=== PATIENT | female | born 1960 | race Caucasian/White ===

== ENCOUNTER 2022-08-18 09:46 | Outpatient (CLI) | payer MEDICAID, SELFPAY ==
--- OUTSIDE RECORDS SUMMARY | 2022-08-18 11:23 | XMS_ITS | Clinical Summary ---
:1960 Author Organization [employer] [facility] [place] [address] Care Team Providers Name Role Phone Harish William MD Primary Care Provider Allergies Active Allergy Reactions Severity Noted Date Comments Sulfa (Sulfonamide Antibiotics) Rash Medium 2 Medications Medication Sig Dispensed Refills Start Date End Date Status venlafaxine (EFFEXOR) Take 1 tablet by 0 05/31/2012 Active 50 mg tablet mouth 2 times daily. traZODone (DESYREL) 100 Take 1 tablet by 0 2 Active mg tablet mouth at bedtime. Active Problems Problem Noted Date Screen for colon cancer 05/31/2012 Overview: Colonoscopy 05/2012 normal repeat in 10 y ears Social History Tobacco Use Types Packs/Day Years Used Date Current Every Day Smoker Smokeless Tobacco: Never Used Comments: 10 cigs/day Alcohol Use Standard Drinks/Week Comments Not Asked 0 (1 standard drink = 0.6 oz pure alcoho l) Sex Assigned at Date Recorded Not on file Obstetrics History Last Filed Vital Signs Vital Sign Reading Time Taken Comments Blood Pressure 118/78 05/31/2012 2:13 PM CDT Pulse 73 05/31/2012 2:13 PM CDT Temperature - - Respiratory Rate - - Oxygen Saturation 98% 05/31/2012 2:13 PM CDT Inhaled Oxygen Concentration - - Weight - - Height - - Body Mass Index - - Plan of Treatment Health Maintenance Due Date Last Done Comments COVID-19 vaccine series (#1) 03/03/1960 Tdap 1970 Depression screening for age 12+ 1971 BMI (ht and wt on same day) for 1977 age 18+ Hepatitis C screening for age 1109/03/1977 18-79 Tetanus booster 1979 Lipids for age 45-75 2004 Mammogram for age 45-75 2004 Zoster (shingles) series for age 1109/03/2009 50+ (1 of 2) Colonoscopy through age 75 05/31/2022 05/31/2012, 2 Influenza for age 50-64 06/15/2022 Pap test for age 21-65 07/19/2023 07/19/2020, 07/19/2020, 05/27/2015, Additional history exists Results Not on filefrom Last 3 Months Insurance Payer Benefit Plan / Subscriber ID Effective Dates Phone Addre ss Type Group BLUE [employer]OSS BLUE CROSS OF [id number] 2009-Present [id number] [place] [address] Care Teams Cylinder Block Hole Reliner Relationship Specialty Start Date End Date Harish William MD PCP - General Family Practice 05/07/12
[2022-08-18 12:50] LABS: Vitamin D 25 Hydroxy* 68 ng/mL (30-80)
[2022-08-18 12:57] LABS: Albumin* 4.4 g/dL (3.3-5.0); Chloride* 105 mmol/L (96-114); Potassium* 4.8 mmol/L (3.6-5.1); Sodium* 138 mmol/L (135-149)
[2022-08-18 12:59] LABS: Cholesterol* 159 mg/dL (90-199)
[2022-08-18 13:00] LABS: Alanine Aminotransferase* 17 U/L (4-35); Alkaline Phosphatase* 70 U/L (40-150); Aspartate Amino Transferase* 22 U/L (12-35); Bilirubin Total* 0.5 mg/dL (0.1-1.5); Blood Urea Nitrogen* 16 mg/dL (7-30); Calcium* 9.1 mg/dL (8.4-10.6); Carbon Dioxide* 27 mmol/L (20-32); Creatinine* 0.8 mg/dL (0.5-1.5); Estimated Glomerular Filt Rate 83 ml/min; Glucose* 101 mg/dL (60-115); Total Protein* 6.6 g/dL (6.0-8.3); Triglycerides* 176 mg/dL (40-149)
[2022-08-18 13:01] LABS: HDL Cholesterol* 46 mg/dL (>=50); LDL Cholesterol Calculated 78 mg/dL (<100)
== END 2022-08-18 09:47 | disposition home or self-care (01) ==
PROVIDERS: Nurse Practitioner Family; PCP Family Medicine; Visit Provider Family Medicine
DX: Z00.00 Encounter for general adult medical examination without abnormal findings (principal); E78.5 Hyperlipidemia, unspecified; E03.9 Hypothyroidism, unspecified; Z79.899 Other long term (current) drug therapy
CPT/HCPCS: 80053; 80061; 82306; 84443

== ENCOUNTER 2022-12-13 09:45 | Outpatient (CLI) | payer MEDICAID, SELFPAY ==
--- NOTE | 2022-12-13 10:00 | CRLHL7_ITS ---
For Patients: As a result of the Century Cures Act, medical imaging exams and procedure reports are released immediately into your electronic medical record. You may view this report before your referring provider. If you have questions, please contact your health care provider. INDICATION: Lung cancer screening. History of smoking. High risk patient with greater than 39 pack-year smoking history. TECHNIQUE: Low-dose lung cancer screening non-contrast CT chest. Dose reduction techniques were used. COMPARISON: None. FINDINGS: NODULES: None. LUNGS AND PLEURA: Left-sided Bochdalek hernia containing fat. MEDIASTINUM: Normal. CORONARY ARTERY CALCIFICATION: Present. LAD territory. LIMITED UPPER ABDOMEN: Normal except for the left-sided Bochdalek hernia. MUSCULOSKELETAL: Normal. IMPRESSION: Negative for lung cancer screening purposes. LUNG-RADS CATEGORY: 1. Negative. RADIOLOGIST RECOMMENDATION: Continue annual screen with low-dose CT chest in 12 months. Please note that all CT scans at this facility use dose modulation, iterative reconstruction, and/or weight-based dosing when appropriate to reduce radiation dose to as low as reasonably achievable. Dictated by Hero Dawn MD @ 12/13/2022 12:10:12 PM (Electronically Signed)
== END 2022-12-13 09:46 | disposition home or self-care (01) ==
LOC: CT 09:46
PROVIDERS: PCP Family Medicine; Visit Provider Emergency Medicine
DX: Z12.2 Encounter for screening for malignant neoplasm of respiratory organs (principal); F17.210 Nicotine dependence, cigarettes, uncomplicated
CPT/HCPCS: 71271

== ENCOUNTER 2022-12-26 08:47 | Outpatient (CLI) | payer MEDICAID, SELFPAY | END 2022-12-26 08:48 | disposition home or self-care (01) | LOC: OP CLINIC 08:49 | PROVIDERS: PCP Family Medicine; Visit Provider Surgery | DX: Z12.11 Encounter for screening for malignant neoplasm of colon (principal); K63.5 Polyp of colon; K57.30 Diverticulosis of large intestine without perforation or abscess without bleeding; K64.9 Unspecified hemorrhoids | CPT/HCPCS: 45385; 88305; 99153; J2250; J3010 ==

== ENCOUNTER 2023-01-29 09:42 | Outpatient (CLI) | payer MEDICAID, SELFPAY ==
--- NOTE | 2023-01-29 09:45 | CRLHL7_ITS ---
For Patients: As a result of the Century Cures Act, medical imaging exams and procedure reports are released immediately into your electronic medical record. You may view this report before your referring provider. If you have questions, please contact your health care provider. BILATERAL SCREENING MAMMOGRAM WITH COMPUTER-AIDED DETECTION AND TOMOSYNTHESIS TECHNIQUE: CC and MLO views were obtained. These mammographic images have been obtained using full-field digital technique. These mammographic images were interpreted with the benefit of computer-aided detection. Breast Tomosynthesis was used in this interpretation. COMPARISON FILM: 09/17/20, 06/20/19. FINDINGS: There are scattered areas of fibroglandular density. IMPRESSION: There is no radiographic evidence for malignancy. ASSESSMENT: BI-RADS Category 1: Negative RECOMMENDATION: Routine screening mammogram in 1 year. A lay language report of this examination will be provided to the patient. Ronnie Perry M.D. Diagnostic Radiologist [email or web address] Transcribed: 8:58 a.m. PT/Dictated by: Ronnie Perry MD @ 01/29/2023 12:29:00 PM (Electronically Signed)
== END 2023-01-29 09:43 | disposition home or self-care (01) ==
LOC: MAMMO 09:44
PROVIDERS: PCP Family Medicine; Visit Provider Family Medicine
DX: Z12.31 Encounter for screening mammogram for malignant neoplasm of breast (principal)
CPT/HCPCS: 77063; 77067

== ENCOUNTER 2023-08-02 11:00 | Outpatient (RCR) | payer MEDICAID, SELFPAY ==
--- NOTE | 2023-05-31 12:57 | PT.OPEX ---
PT [place] Outpatient Eval PT [facility] Outpatient Eval Start: 05/31/23 08:38 Freq: Status: Active Protocol: Document 05/31/23 08:38 AMS (Rec: 05/31/23 12:50 AMS [id number]) E-signed By Machelle Moreno PT Physical Therapy Outpatient Evaluation Insurance Information Recert Due Date 08/24/23 Insurance Name Medicaid,are Medical Diagnosis Nontraumatic coccydynia Treating Diagnosis Low back pain Muscle weakness Referring MD Jana Hunter Subjective Subjective Kavya is a 62-year-old female presenting to urgent care for tailbone pain x 2 weeks secondary to a fall. She was [place] in [place] when she tripped over a log, twisted her body and landed on her tailbone. Has a constant sharp pain localized directly to her coccyx. Denies tingling, numbness or shooting pains to lower extremities. No difficulty with urinary retention or incontinence. Has tried Tylenol, Ibuprofen and a supportive pad to sit on. Reports she previously hurt to [facility] back in December and had an xray done. It had no acute findings of fracture or dislocation. Was advised to start PT for the pain, but never went through with it because she thought it would improve on its own. -Jana Hunter, 05/05/23, confirmed by patient Patient reports sudden onset of tailbone pain in December without known trauma or injury . She states it came on overnight, and she might have fallen while on the ice, but isn't sure. Also fell in April about 6 weeks ago while camping and landed on her bottom. Since starting, the pain has stayed similar, not improving. Denies numbness/ tingling/radiating pain. Localizes pain over center of coccyx described as sharp and constant with whatever she is doing. Has had a few moments of no pain. Functional limitations/aggravating factors include sitting for longer periods, traveling due to sitting, and pain with sex. Has not been able to have sex due to pain since her fall in April. Denies pain or difficulty with urination or defecation, although does have some pain right before defecating. Has tried the donut cushion without much relief. Easing factors include rest, ibuprofen, standing/ walking, and sitting on soft, sloped lawn chairs. Denies any pain that wakes her up at night. Also feels her balance isn't what it used to be, although no falls in last year other than previously mentioned. Pain Comments 7/10 on average, can be lower in standing Date of Last Physician Visit 05/05/23 Occupation Homemaker Precautions Treatment Precautions/Contraindications Hypothyroidism, Bochdalek hernia, history of inguinal hernia repair, smoker Therapy Limitations/Systems Review Affect,Cognition Objective Other/Pertinent Objective IMAGING: Bones: Alignment is normal. No displaced fractures or bone lesions. Joint spaces: Unremarkable. Soft tissues: Unremarkable. - Dany Ochoa, 05/05/23 Posture Assessment: No abnormalities noted. Gait Assessment: Ambulates with normal, non-antalgic heel -toe gait, no assistive device , mild postural sway. BALANCE Single leg stance: L: 2 seconds. R: 4 seconds FUNCTIONAL MOBILITY Double leg squat: WNL, past 90 deg, no pain LUMBAR ROM Flexion: Past patella, no pain , WNL Extension: 100% Right Sidebendin% Left Sidebendin% Right rotation: 100% Left rotation: 100% REPEATED MOVEMENTS: Lumbar flexion: No change in symptoms Lumbar extension: No change in symptoms HIP ROM (R/L) Flexion: 90/90 Extension: 15/15 Internal Rotation: 10/10 External Rotation: 45/45 Abduction: WNL LE MMT Hip flexion: R 5/5 L 4/5 Hip Extension: R 5/5 L 5/5 Hip abduction: R 5/5 L 5/5 Hip adduction: R 5/5 L 5/5 Knee extension: R 5/5 L 5/5 Knee Flexion: R 5/5 L 5/5 Dorsiflexion/heel walk: R 5/5 L 5/5 Plantarflexion: able to toe walk Abdominal Strength: -Double Leg Lower: Able to perform while maintaining LB contact w/ plinth -TrA activation good in hooklying JOINT MOBILITY/PALPATION Mild TTP noted over coccyx in center near gluteal cleft, no TTP over glutes, lumbar spine, lateral hip or SI joint. SPECIAL TESTS -Straight leg raise: - SI/HIP tests -LAVINIA: - -FADIR: - -Log roll: - -Stinchfield's: - -Gapping and Compression test: - Gaenslen's: - Sacral thrust: - Thigh thrust: - TX: Patient was educated on anatomy, physiology as it relates to current condition and HEP with use of handout/ [employer]. Patient verbalizes understanding and agrees with POC/goals Education: -Scope of pelvic floor physical therapy with recommendation patient follow up with pelvic floor PT at our clinic ([facility], [place]) based on nature of her symptoms and history Pt educated in the following exercises to target abdominal strengthening/bracing with verbal/tactile cues as necessary: Access Code: [email or web address] URL: [email or web address] Date: 05/31/2023 Prepared by: Machelle Moreno Exercises - Supine Diaphragmatic Breathing - 1 x daily - 7 x weekly - 3 sets - 10 reps - Supine Bridge - 1 x daily - 7 x weekly - 3 sets - 15 reps - Supine Posterior Pelvic Tilt - 1 x daily - 7 x weekly - 3 sets - 10 reps Functional Test Performed & Score Modified Oswestry: Assessment Assessment/Impression Pt is a 62 -year-old female who presents with concerns of subacute on chronic coccyx/ tailbone pain and moderate severity and irritability after a fall onto the area 6 weeks ago and another potential fall in December. Signs and symptoms are likely indicating / consistent with pelvic floor involvement given patient's history and impairments. X-rays showed intact pelvic area with no fracture. On exam, patient also demonstrates notable objective findings including normal lumbar exam, hip ROM within functional limits, pain with palpation of coccyx, and decreased trunk/hip strength, leading to difficulties with sitting for long periods, traveling, and having pain with sex. Pain is present constantly throughout all daily activities. Denies bowel or bladder issues/pain other than pain before a bowel movement at times. Patient is appropriate for skilled pelvic floor physical therapy services to address the above deficits; will refer patient to pelvic floor therapist for evaluation and follow up. Pt was agreeable with plan of care and goals established. Primary Functional Limitations sitting for long periods, traveling, sex without pain Plan of Care Rehabilitation Potential Good Physical Therapy Goals By end of session: Pt will demonstrate teachback of HEP to ensure progress in reaching established goals during course of care. MET Coordination/Communication With Referral Source Treatment Plan/Direct Interventions Gait Training,Joint Mobilization,Manual Therapy, Neuromuscular Re-ed,Self-Care/ Home Management,Therapeutic Activities,Therapeutic Exercises Frequency/Duration 1x/week or as determined by pelvic floor PT Patient Will Be Discharged From Therapy Completion of LTG(s), Independent w/HEP, Independently Progressing Evaluation Billing Untimed Code Treatment Minutes 30 Complexity Moderate Certification Information Initial Certification Date 05/31/23 Ending Certification Date 08/24/23 Provider Signature Shows Agreement With POC & Medical Necessity Physician Signature & Date Requested Please Sign/Date Here Physician Comment/Change : Physician NPI Number #
--- NOTE | 2023-07-12 13:03 | PT.OPDNX ---
PT [place] Outpatient Daily Note PT [facility] Outpatient Daily Note Start: 05/31/23 08:38 Freq: Status: Active Protocol: Document 07/12/23 09:35 ARR (Rec: 07/12/23 12:51 ARR [id number]) E-signed By Dian Locke DPT PT OP Daily Progress Note Visit Information Note Type Daily Note,Re-Evaluation Visit Number 1 Running Total Visit Number 2 Insurance Information Recert Due Date 10/10/23 Insurance Name Medicaid,[facility] Insurance Information/Comments Eval 05/31 Re-eval 07/12 POC 1x12 Medical Diagnosis Nontraumatic coccydynia Treating Diagnosis R10.2 Pelvic and perineal pain N39.3 Stress incontinence Referring MD Jana Hunter Subjective Subjective From re-eval on 07/12: -Had a fall a few months ago then it came on suddenly. Unsure if it was getting better. Since seeing initial PT pain has improved by 50%. Can sit without a donut for a while but the pain comes on. -Increases in pain: exercises has flare of pain, sitting, intercourse unable due to pain . -Urinary: laughing, sneezing, coughing. No urinary urgency. No straining. Daytime urination: 3-4x. Nocturia 0x. -Hydration: water or sparkling water 16 ounces / 1 cup coffee (BW 200#) -Bowel: 1x/day. Occasional straining. Does put pressure on tailbone until she goes then it resolves. Stool type 2 . -Sexual: Marinoff scale 3 -PMhx: Hernia repair on R side From eval on 05/31: Kavya is a 62-year-old female presenting to urgent care for tailbone pain x 2 weeks secondary to a fall. She was [place] when she tripped over a log, twisted her body and landed on her tailbone. Has a constant sharp pain localized directly to her coccyx. Denies tingling, numbness or shooting pains to lower extremities. No difficulty with urinary retention or incontinence. Has tried Tylenol, Ibuprofen and a supportive pad to sit on. Reports she previously hurt to [facility] back in December and had an xray done. It had no acute findings of fracture or dislocation. Was advised to start PT for the pain, but never went through with it because she thought it would improve on its own. -Jana Hunter, 05/05/23, confirmed by patient Patient reports sudden onset of tailbone pain in December without known trauma or injury . She states it came on overnight, and she might have fallen while on the ice, but isn't sure. Also fell in April about 6 weeks ago while camping and landed on her bottom. Since starting, the pain has stayed similar, not improving. Denies numbness/ tingling/radiating pain. Localizes pain over center of coccyx described as sharp and constant with whatever she is doing. Has had a few moments of no pain. Functional limitations/aggravating factors include sitting for longer periods, traveling due to sitting, and pain with sex. Has not been able to have sex due to pain since her fall in April. Denies pain or difficulty with urination or defecation, although does have some pain right before defecating. Has tried the donut cushion without much relief. Easing factors include rest, ibuprofen, standing/ walking, and sitting on soft, sloped lawn chairs. Denies any pain that wakes her up at night. Also feels her balance isn't what it used to be, although no falls in last year other than previously mentioned. Pain Comments 04/23 on average, can be lower in standing Precautions Treatment Precautions/Contraindications Hypothyroidism, Bochdalek hernia, history of inguinal hernia repair, smoker Home Exercise Home Exercise Comments Access Code: [email or web address] URL: [email or web address]/ Date: 05/31/2023 Prepared by: Machelle Moreno Exercises - Supine Diaphragmatic Breathing - 1 x daily - 7 x weekly - 3 sets - 10 reps - Supine Bridge - 1 x daily - 7 x weekly - 3 sets - 15 reps - Supine Posterior Pelvic Tilt - 1 x daily - 7 x weekly - 3 sets - 10 reps Objective Other/Pertinent Objective 07/12: INTERNAL EXAMINATION INTRAVAGINAL: -Sensation: intact to touch -Observation: WNL -Perineum: normal -Cough: bulge -Lifting contraction: L sided clitoral nod and anal wink, reduced on R side -Bulge: nil -Prolapse: anterior wall / posterior wall >1 cm above level of hymen Tenderness/pain to palpation/ tone: -Introidus: -Layer 3: increased tone bilat coccygeus and PC bilaterally Strength ( R / C / L): -Power (MMT): 2 -Endurance: 5 -Reps:3 -Fast twitch: 4 -Relaxation of PFM after quick contractions: delayed *Poor squeeze strength of PFM Other: -Breathing examination: dec?d posterior and lateral ribcage mvmt with inhalation -Coordination: TA inhibition Rectal assessment: -MMT 1 with a flicker of contraction -Palpation: WNL with visual x 3 hemhorroids externally. Internal palpation noting R sided coccygeus and proximal PC TTP and increased tone with R sided deviation of coccyx. Pain with extension of coccyx -No external TTP to STL or external tissues Functional Test Performed & Score Modified Oswestry: Patient Instructed in Risks/Benefits Yes Therapeutic Exercise Therapeutic Exercise Minutes (minutes) 20 Therapeutic Exercise: To Restore TE: Indicated for improvement Functional Status in strengthening and mobility. -Handouts with written instructions and photographs of exercises were issued to the patient for exercises to be included in HEP. Answered patient questions regarding POC, and mobility/stretches to perform if pain occurs Self Care/Home Management: -pt educated in anatomy and function of bladder & pelvic floor & etiology of symptoms. -Education regarding importance of deep diaphragmatic breathing for lengthening of PFM and anatomical relationship of diaphragm and PF -Pt educated regarding importance of proper P mgmt and impact on abdominal wall/ PF with poor techniques -Provided instructions about completion of bladder diary. Written instructions/ information provided to pt to complete x 2 days. -Happy baby deep breathing x 8 breaths -Bolstered child's pose x 8 breaths -Education sitting with rolled towel to offload coccyx - information provided on handout Manual Therapy Techniques Manual Therapy Minutes (minutes) 10 Manual Therapy Techniques MT: indicated for improving joint mobility, reducing tissue irritability, and improving range of motion. intra-rectal w/consent -Coccyx extension mobilization -COccyx traction 2-3 x 15-20 sec -STM to R sided coccygeus and PC with deep breathing Other Interventions Provided Other Interventions Provided Re-evaluation see objective findings above Other Interventions Untimed Minutes 30 Treatment Minutes Untimed Code Treatment Minutes 30 Timed Code Treatment Minutes 30 Total Treatment Time 60 Billing Units Manual Therapy Units 1 Therapeutic Exercise Units 1 Re-Evaluation Units 1 Assessment/Impression Assessment/Impression Pt is a pleasant 62 y/o female who presents with concerns of urinary leakage, tailbone pain, and pain with intercourse after fall a in April 2023. Re-evaluation was warranted this date to complete a thorough pelvic floor examination to assess contributing factors to pain/ symptoms. Signs and symptoms likely indicating / consistent with trauma of a fall with increased PFM tone greatest at R sided coccygeus and PC with R sided coccyx deviation noted during rectal assessment this date. Vaginal assessment noting PFM weakness with lift and squeeze of PFM likely contributing to urinary leakage. Patient is a good candidate for skilled therapy to target deficits described above. Skilled PT intervention is necessary for use of therapeutic exercise manual therapy, neuromuscular re- education, gait training, and therapeutic activity. Functional impairments include difficulty with: urinary leakage and tailbone pain with sitting . See appropriate sections of PT eval for complete list of goals and POC . D/C plan and criteria is for pt to achieve the goals as listed below or until max rehab potential is met. Pt was agreeable with plan of care and goals established. Skilled PT indicated to continue at a frequency of 1x/wk x 10 visits within 90 days as indicated for achievement of goals. Evaluation and internal vaginal PFM assessment/ treatment with patient consent was requested and obtained. Plan of Care Physical Therapy Goals STG (within 5 visits) 1)Pt will initiate HEP without increased pain/symptoms 2)Pt will report at least 40% improvement in pain/symptoms since start of therapy for improved sitting tolerance LTG (within 10 visits) 1)Pt will be indep in HEP for prison mgmt. of pain/ symptoms 2)Pt will report at least 80% improvement in pain/symptoms since start of therapy for improved sitting tolerance 3)Pt will report Marinoff scale not exceeding 2 Daily Plan of Care Change POC; See Comments Daily Plan of Care Comments -Rectal treatment as indicated - external assessment for spine mobility and aligment, strengthening as indicated. Recertification Information Provider Signature Shows Agreement With POC & Medical Necessity
== END 2023-10-24 15:08 | disposition home or self-care (01) ==
PROVIDERS: PCP Family Medicine; Visit Provider Physician Assistant
DX: M53.3 Sacrococcygeal disorders, not elsewhere classified (principal); R10.2 Pelvic and perineal pain; N39.3 Stress incontinence (female) (male); Z51.89 Encounter for other specified aftercare
CPT/HCPCS: 97110; 97140; 97162; 97164

== ENCOUNTER 2024-01-03 13:15 | Outpatient (CLI) | payer MEDICAID, SELFPAY | END 2024-01-03 13:16 | disposition home or self-care (01) | PROVIDERS: PCP Family Medicine; Visit Provider Family Medicine | DX: Z00.00 Encounter for general adult medical examination without abnormal findings (principal); E03.9 Hypothyroidism, unspecified; E78.00 Pure hypercholesterolemia, unspecified; E78.5 Hyperlipidemia, unspecified; Z79.899 Other long term (current) drug therapy | CPT/HCPCS: 80053; 80061; 84443 ==

== ENCOUNTER 2024-01-10 10:52 | Outpatient (CLI) | payer MEDICAID, SELFPAY ==
--- NOTE | 2024-01-10 11:00 | CT_ITS ---
Patient: JOSE MORRIS Facility:?[facility] Patient ID:?[id number] Site Patient ID:?[id number]. Site :?[id number] Study:?CT-Chest LUNG SCREENING-01/10/2024 11:12:33 AM Ordering Physician:ENIO Final Report: INDICATION: Lung cancer screening. TECHNIQUE: Noncontrast CT images of the chest. COMPARISON: CT chest 12/13/2022. FINDINGS: No pulmonary nodules, focal consolidation, pleural effusion, or pneumothorax. Small left Bochdalek hernia. Heart size is normal. No pericardial effusion. Mild coronary artery atherosclerotic calcifications. No mediastinal or hilar lymphadenopathy. Limited images through the upper abdomen are unremarkable. Mild thoracic spondylosis. No aggressive osseous lesions. IMPRESSION: No lung nodules or masses. Lung rads category 1, negative. Continue annual screening with low-dose chest CT in 12 months. Please note that all CT scans at this facility use dose modulation, iterative reconstruction, and/or weight-based dosing when appropriate to reduce radiation dose to as low as reasonably achievable. Dictated by Mayo Leal MD @ 01/10/2024 9:06:55 PM Signed by:?Mayo Leal MD @01/10/2024 9:06:55 PM (Electronic Signature)
== END 2024-01-10 10:53 | disposition home or self-care (01) ==
LOC: CT 10:53
PROVIDERS: PCP Family Medicine; Visit Provider Emergency Medicine
DX: Z12.2 Encounter for screening for malignant neoplasm of respiratory organs (principal); F17.210 Nicotine dependence, cigarettes, uncomplicated
CPT/HCPCS: 71271

== ENCOUNTER 2024-04-10 10:42 | Outpatient (CLI) | payer MEDICAID, SELFPAY ==
--- OUTSIDE RECORDS SUMMARY | 2024-04-10 10:45 | XMS_ITS | Clinical Summary ---
Author Organization [employer] [facility] Address [place], [place] [address] Care Team Providers Care Food Scientist Name Role Phone Harish William MD Primary Care Provider [phone] Allergies Active Allergy Reactions Criticality Noted Date Comments Sulfa (Sulfonamide Antibiotics) Rash Medium 05/15 Medications Medication Sig Dispensed Refills Start Date End Date Status venlafaxine (EFFEXOR) 50 mg tablet Take 1 tablet by mouth 2 times daily. 0 05/31/2012 Active traZODone (DESYREL) 100 mg tablet Take 1 tablet by mouth at bedtime. 0 05/31/2012 Active Active Problems Problem Noted Date Diagnosed Date Screen for colon cancer 05/31/2012 Overview: Colonoscopy 05/2012 normal repeat in 10 years Social History Tobacco Use Types Packs/Day Years Used Date Smoking Tobacco: Every Day Smokeless Tobacco: Never Comments:10 cigs/day Alcohol Use Standard Drinks/Week Comments Not Asked 0 (1 standard drink = 0.6 oz pur e alcohol) Sex and Gender Information Value Date Recorded Sex Assigned at Not on file Gender Identity Not on file Sexual Orientation Not on file Obstetrics History Last Filed [...] Health Maintenance Due Date Last Done Comments Tdap 1970 Depression screening for age 12+ 1971 HIV for age 15-65 1974 BMI (ht and wt on same day) for age 18+ 1977 Hepatitis C screening for age 18-79 1977 Tetanus booster 1979 Lipids for age 45-75 2004 Mammogram for age 45-75 2004 Zoster (shingles) series for age 50+ (1 of 2) 2009 Colonoscopy through age 75 05/31/2022 05/31/2012, COVID-19 vaccine series (2022-24 season) 2023 Pap test for age 21-65 07/19/2023 0, 07/19/2020, 05/27/2015, Additional history exists Influenza for age 50-64 06/15/2024 Pneumococcal series for age 6-64 Aged Out No longer eligible based on patient's age to complete this topic Procedures Procedure Name Priority Date/Time Associated Diagnosis Comments TOBACCO BALER THIN PREP PAP SCREEN IMAGED Routine 07/19/2020 11:00 AM CDT from Last 3 Months or Most Recently Relevant to Health Maintenance Results * TOBACCO BALER THIN PREP PAP SCREEN IMAGED (07/19/2020 11:00 AM CDT) Case Report Gynecologic Cytology Report ? Case: [id number] ? Authorizing Provider: ??Bebo Gomes MD ?Collected: ? 07/19/2020 1100 ? Ordering Location: ? [facility] ?Received: ?07/19/2020 1722 ? First Screen: ?Lyudmila Gilbert ? Specimen: ?TOBACCO BALER ThinPrep Vial Screening, Cervical/Vaginal ? 07/28/2020 11:51 AM CDT [facility] [employer] [facility] INTERPRETATION/ RESULT NEGATIVE FOR INTRAEPITHELIAL LESION OR MALIGNANCY (NIL) (none) 07/28/2020 11:51 AM CDT [facility] ENTRAL LABORATORY IMEN ADEQUACY Satisfactory for evaluation Endocervical component present 07/28/2020 11:51 AM CDT [facility] LAB[facility]ORY HPV REQUEST HPV and PAP 07/28/2020 11:51 AM CDT [facility] Last Pap Date 05/27/2015 07/28/2020 11:51 AM CDT [facility] Last Pap Result NIL 0 11:51 AM CDT [facility] Menstrual Status Postmenopausal 07/28/2020 11:51 AM CDT [facility] [employer] [facility] ENTR[facility] LAB[facility] Additional Information 07/28/2020 11:51 AM CDT [facility] EN[facility] LAB[facility]ORY Comment: Interpreted at [facility] - [address] [place] [address], [place] [address] Automated Review Successful 07/28/2020 11:51 AM T [facility] ENTRAL LABORATORY Comment:Specimen processed s uccessfully by automated entry level manager device, ThinPrep Imaging System, [employer] ANCILLARY TESTING TOBACCO BALER HPV Ordered, Please see separate report 07/28/2020 11:51 AM T [facility] ENTRMT LABORATORY Note The pap test is a screening technique, not a diagnostic procedure. It is used primarily to screen for squamous cancers and precursor lesions. Published studies have shown that it is subject to both false negative and false positive results. The pap test should not be used as the sole means to diagnose or exclude pre-malignant and malignant lesions. 07/28/2020 11:51 AM CDT [facility] ENTRAL LAB[facility]ORY Other (Cervical/Vagina l) 07/19/2020 11:00 AM CDT 07/19/2020 5:22 PM CDT Bebo Gomes MD PATHOLOGY/CYTOLOGY [facility] LAB[facility]AT[facility]-CENTRAL LABORATORY [address] [place] [address], from Last 3 Months or Most Recently Relevant to Health Maintenance Care Teams Food Scientist Relationship Specialty Start Date End Date Harish William MD PCP - General Family Practice 05/07/12
--- NOTE | 2024-04-10 11:00 | CRLHL7_ITS ---
For Patients: As a result of the Century Cures Act, medical imaging exams and procedure reports are released immediately into your electronic medical record. You may view this report before your referring provider. If you have questions, please contact your health care provider. Indication: ABD PAIN, GENERALIZED, GAS Technique: CT Abdomen/Pelvis W/ 98CC [id number] Please note that all CT scans at this facility use dose modulation, iterative reconstruction, and/or weight-based dosing when appropriate to reduce radiation dose to as low as reasonably achievable. Comparison: CT chest 01/10/2024 Findings: Incidental Bochdalek`s hernia containing fat on the left, as before. Mild atelectatic change in both lung bases. No pleural effusion. Mild focal fat deposition within the liver adjacent to the falciform ligament is present. The spleen is normal. No hiatal hernia. Small left adrenal adenoma is present and measures 11 millimeters. Normal right adrenal gland. Slight fatty infiltration of the liver noted. Normal pancreas and gallbladder. Mild atherosclerotic change. No aneurysm. 2 millimeter nonobstructing stone midportion right kidney. Normal left kidney. The bladder is normal. Small intramural fibroid is present in the uterus. Both ovaries appeared normal. No adnexal mass. Sigmoid diverticulosis. No diverticulitis. No bowel obstruction. No free air, free fluid or abscess. Normal caliber of the appendix with incidental appendicolith. No adenopathy. No abdominal wall hernia. Multilevel degenerative facet arthropathy lower lumbar spine. No fracture. Degenerative joint disease at both hips. Impression: Sigmoid diverticulosis. No diverticulitis or bowel obstruction. Mild hepatic steatosis. 2 millimeter nonobstructing stone in the right kidney. 11 millimeter left adrenal adenoma. Please note that all CT scans at this facility use dose modulation, iterative reconstruction, and/or weight-based dosing when appropriate to reduce radiation dose to as low as reasonably achievable. Dictated by Ronnie Perry MD @ 04/11/2024 6:37:56 AM (Electronically Signed)
[2024-04-10 11:31] LABS: Creatinine* 0.9 mg/dL (0.5-1.5); Estimated Glomerular Filt Rate 71 ml/min
[2024-04-10 11:53] LABS: Albumin* 4.6 g/dL (3.3-5.0)
[2024-04-10 11:56] LABS: Cholesterol* 205 mg/dL (90-199); Total Protein* 7.1 g/dL (6.0-8.3)
[2024-04-10 11:57] LABS: Alanine Aminotransferase* 15 U/L (4-35); Alkaline Phosphatase* 59 U/L (40-150); Aspartate Amino Transferase* 23 U/L (12-35); Bilirubin Direct* 0.3 mg/dL (0.0-0.5); Bilirubin Total* 0.6 mg/dL (0.1-1.5); HDL Cholesterol* 43 mg/dL (>=50); LDL Cholesterol Calculated 123 mg/dL (<100); Triglycerides* 197 mg/dL (40-149)
== END 2024-04-10 10:43 | disposition home or self-care (01) ==
LOC: CT 10:43
PROVIDERS: PCP Family Medicine; Visit Provider Physician Assistant
DX: R10.84 Generalized abdominal pain (principal); K57.30 Diverticulosis of large intestine without perforation or abscess without bleeding; K76.0 Fatty (change of) liver, not elsewhere classified; N20.0 Calculus of kidney; E27.9 Disorder of adrenal gland, unspecified; R10.13 Epigastric pain; E78.5 Hyperlipidemia, unspecified; E78.00 Pure hypercholesterolemia, unspecified
CPT/HCPCS: 36415; 74177; 80061; 80076; 82565; Q9967

== ENCOUNTER 2024-07-15 12:11 | Outpatient (CLI) | payer MEDICAID, SELFPAY ==
--- OUTSIDE RECORDS SUMMARY | 2024-07-16 11:03 | XMS_ITS | Clinical Summary ---
Author Organization [employer] [facility] Address [place], [place] [address] Care Team Providers Care Fresh Meat Grader Name Role Phone Harish William MD Primary Care Provider [phone] Allergies Active Allergy Reactions Criticality Noted Date [...] Diagnosed Date Screen for colon cancer 05/31/2012 Overview (05/31/2012): Colonoscopy 05/2012 normal repeat in 10 years [...] 2009 Colonoscopy through age 75 05/31/2022 05/31/2012, Pap test for age 21-65 07/19/2023 0, 07/19/2020, 05/27/2015, Additional history exists COVID-19 vaccine series (2023-25 season) 2024 Influenza for age 50-64 06/15/2024 Pneumococcal series for age 6-64 Aged Out No longer eligible based on patient's age to complete this topic Procedures Procedure Name Priority Date/Time Associated Diagnosis Comments FLOOR SUPERVISOR THIN PREP PAP SCREEN IMAGED Routine 07/19/2020 11:00 AM CDT from Last 3 Months or Most Recently Relevant to Health Maintenance Results * FLOOR SUPERVISOR THIN PREP PAP SCREEN IMAGED (07/19/2020 11:00 AM CDT) Case Report Gynecologic Cytology Report ? Case: [id number] ? Authorizing Provider: ??Bebo Gomes MD ?Collected: ? 07/19/2020 1100 ? Ordering Location: ? [facility] ?Received: ?07/19/2020 1722 ? First Screen: ?Lyudmila Gilbert ? Specimen: ?FLOOR SUPERVISOR ThinPrep Vial Screening, Cervical/Vaginal ? 07/28/2020 11:51 AM CDT [employer] [facility] EN[facility] LAB[facility] INTERPRETATION/ RESULT NEGATIVE FOR INTRAEPITHELIAL LESION OR MALIGNANCY (NIL) (none) 07/28/2020 11:51 AM CDT [facility] [employer] [facility] ENTRAL LABORATORY IMEN ADEQUACY Satisfactory for evaluation Endocervical component present 07/28/2020 11:51 AM CDT [facility] [employer] [facility] HPV REQUEST HPV and PAP 07/28/2020 11:51 AM CDT [facility] [employer] [facility] ENTR[facility] LAB[facility] Last Pap Date 05/27/2015 07/28/2020 11:51 AM CDT [facility] [employer] [facility] EN[facility] LAB[facility] Last Pap Result NIL 0 11:51 AM CDT [facility] [employer] [facility] Menstrual Status Postmenopausal 07/28/2020 11:51 AM CDT [facility] [employer] [facility] EN[facility] LAB[facility] Additional Information 07/28/2020 11:51 AM CDT [facility] [employer] [facility] EN[facility] LAB[facility] Comment: Interpreted at [facility] - [address] [place] [address], [place] [address] Automated Review Successful 07/28/2020 11:51 AM CDT [facility] [employer] [facility] ENTR[facility] LAB[facility] Comment:Specimen processed s uccessfully by automated warehouse administrative assistant device, ThinPrep Imaging System, [employer] ANCILLARY TESTING FLOOR SUPERVISOR HPV Ordered, Please see separate report 07/28/2020 11:51 AM CDT [facility] [employer] [facility] EN[facility] LAB[facility] Note The pap test is a [...] and malignant lesions. 07/28/2020 11:51 AM CDT [facility] [employer] [facility] EN[facility] LAB[facility]AT[facility] Other (Cervical/Vagina l) 07/19/2020 11:00 AM CDT 07/19/2020 5:22 PM CDT Bebo Gomes MD PATHOLOGY/CYTOLOGY [facility]-CENTRAL LABORATORY [address] [place] [address], from Last 3 Months or Most Recently Relevant to Health Maintenance Care Teams Fresh Meat Grader Relationship Specialty Start Date End Date Harish William MD PCP - General Family Practice 05/07/12
== END 2024-07-15 12:12 | disposition home or self-care (01) ==
LOC: NFLDREF 07-16 11:01
PROVIDERS: PCP Family Medicine; Referring Provider Family Medicine; Visit Provider Family Medicine
DX: R10.9 Unspecified abdominal pain (principal); E78.5 Hyperlipidemia, unspecified; F41.9 Anxiety disorder, unspecified; E03.9 Hypothyroidism, unspecified; K21.9 Gastro-esophageal reflux disease without esophagitis; K58.9 Irritable bowel syndrome, unspecified; F32.A Depression, unspecified; F43.10 Post-traumatic stress disorder, unspecified
CPT/HCPCS: 80061; 80076

== ENCOUNTER 2024-07-17 11:03 | Outpatient (CLI) | payer MEDICAID, SELFPAY ==
--- OUTSIDE RECORDS SUMMARY | 2024-07-17 11:06 | XMS_ITS | Clinical Summary ---
Author Organization [employer] [facility] Address [place], [place] [address] Care Team Providers Care Barrel Charrer Name Role Phone Harish William MD Primary Care Provider + [phone] Allergies Active Allergy Reactions Criticality Noted Date [...] Procedure Name Priority Date/Time Associated Diagnosis Comments DOCKMASTER THIN PREP PAP SCREEN IMAGED Routine 07/19/2020 11:00 AM CDT from Last 3 Months or Most Recently Relevant to Health Maintenance Results * DOCKMASTER THIN PREP PAP SCREEN IMAGED (07/19/2020 11:00 AM CDT) Case Report Gynecologic Cytology Report ? Case: [id number] ? Authorizing Provider: ??Bebo Gomes MD ?Collected: ? 07/19/2020 1100 ? Ordering Location: ? [facility] ?Received: ?07/19/2020 1722 ? First Screen: ?Lyudmila Gilbert ? Specimen: ?DOCKMASTER ThinPrep Vial Screening, Cervical/Vaginal ? 07/28/2020 11:51 AM CDT [employer] [facility] ENTRAL LABORATORY INTERPRETATION/ RESULT NEGATIVE FOR INTRAEPITHELIAL LESION OR MALIGNANCY (NIL) (none) 07/28/2020 11:51 AM CDT [facility] [employer] [facility] ENTRAL LABORATORY IMEN ADEQUACY Satisfactory for evaluation Endocervical component present 07/28/2020 11:51 AM CDT [facility] [employer] [facility] ENTRAL LABORATORY HPV REQUEST HPV and PAP 07/28/2020 11:51 AM CDT [facility] [employer] [facility] Last Pap Date 05/27/2015 07/28/2020 11:51 AM CDT [facility] [employer] [facility] ENTR[facility] Last Pap Result NIL 0 11:51 AM CDT [facility] [employer] [facility] ENTRAL LAB[facility] Menstrual Status Postmenopausal 07/28/2020 11:51 AM CDT [facility] [employer] [facility] ENTR[facility] LAB[facility] Additional Information 07/28/2020 11:51 AM CDT [facility] [employer] [facility] EN[facility] Comment: Interpreted at [facility] - [address] [place] [address], [place] [address] Automated Review Successful 07/28/2020 11:51 AM CDT [facility] [employer] [facility] ENTR[facility] LAB[facility] Comment:Specimen processed s uccessfully by automated heating and ventilating worker device, ThinPrep Imaging System, [employer] ANCILLARY TESTING DOCKMASTER HPV Ordered, Please see separate report 07/28/2020 11:51 AM CDT [facility] [employer] [facility] ENTR[facility] Note The pap test is [...] and malignant lesions. 07/28/2020 11:51 AM CDT [facility] [employer] [facility] ENTRAL LAB[facility] Other (Cervical/Vagina l) 07/19/2020 11:00 AM CDT 07/19/2020 5:22 PM CDT Bebo Gomes MD PATHOLOGY/CYTOLOGY [facility] LABORATORY-CENTRAL LABORATORY [address] [place] [address], from Last 3 Months or Most Recently Relevant to Health Maintenance Care Teams Barrel Charrer Relationship Specialty Start Date End Date Harish William MD PCP - General Family Practice 05/07/12
--- NOTE | 2024-07-17 11:15 | CRLHL7_ITS ---
For Patients: As a result of the Century Cures Act, medical imaging exams and procedure reports are released immediately into your electronic medical record. You may view this report before your referring provider. If you have questions, please contact your health care provider. CLINICAL HISTORY: Abdominal pain FINDINGS: Sonographic imaging demonstrates normal size and uniform echotexture of the liver. The pancreas appears normal. The proximal abdominal aorta and IVC appear normal. There is no evidence of ascites. The gallbladder is of normal size and there is no evidence of sludge or stones within the gallbladder lumen. The gallbladder wall measures 3 mm in thickness. The common bile duct measures 4 mm in size within the clifton hepatis. Right kidney unremarkable. IMPRESSION: Normal abdominal ultrasound. Dictated by Cindy Maloney MD @ 07/20/2024 5:16:28 PM (Electronically Signed)
== END 2024-07-17 11:04 | disposition home or self-care (01) ==
LOC: US 11:03
PROVIDERS: PCP Family Medicine; Visit Provider Family Medicine
DX: R10.9 Unspecified abdominal pain (principal)
CPT/HCPCS: 76705

== ENCOUNTER 2024-09-24 10:32 | Outpatient (CLI) | payer MEDICARE, SELFPAY ==
--- NOTE | 2024-09-24 10:15 | CRLHL7_ITS ---
For Patients: As a result of the Century Cures Act, medical imaging exams and procedure reports are released immediately into your electronic medical record. You may view this report before your referring provider. If you have questions, please contact your health care provider. BILATERAL SCREENING MAMMOGRAM WITH COMPUTER-AIDED DETECTION AND TOMOSYNTHESIS TECHNIQUE: CC and MLO views were obtained. These mammographic images have been obtained using full-field digital technique. These mammographic images were interpreted with the benefit of computer-aided detection. Breast Tomosynthesis was used in this interpretation. COMPARISON FILM: 01/29/23, 09/17/20, 06/20/19. FINDINGS: The breasts are almost entirely fatty. IMPRESSION: There is no radiographic evidence for malignancy. ASSESSMENT: BI-RADS Category 1: Negative RECOMMENDATION: Routine screening mammogram in 1 year. A lay language report of this examination will be provided to the patient. Ronnie Perry M.D. Diagnostic Radiologist [email or web address] CAROLYNN/pravin: Transcribed: 8:54 am DW/Dictated by: Ronnie Perry MD @ 09/24/2024 1:03:00 PM (Electronically Signed)
== END 2024-09-24 10:33 | disposition home or self-care (01) ==
LOC: MAMMO 10:34
PROVIDERS: PCP Family Medicine; Visit Provider Family Medicine
DX: Z12.31 Encounter for screening mammogram for malignant neoplasm of breast (principal)
CPT/HCPCS: 77063; 77067

== ENCOUNTER 2024-12-29 13:55 | Outpatient (CLI) | payer MEDICARE, SELFPAY | END 2024-12-29 13:56 | disposition home or self-care (01) | LOC: LKVREF 13:57 | PROVIDERS: PCP Family Medicine; Visit Provider Family Medicine | DX: E78.5 Hyperlipidemia, unspecified (principal); R10.9 Unspecified abdominal pain; F17.210 Nicotine dependence, cigarettes, uncomplicated; K21.9 Gastro-esophageal reflux disease without esophagitis; K58.9 Irritable bowel syndrome, unspecified; F41.9 Anxiety disorder, unspecified; Z79.899 Other long term (current) drug therapy | CPT/HCPCS: 80053; 80061; 84443; 87086 ==

== ENCOUNTER 2025-01-30 11:07 | Outpatient (CLI) | payer MEDICARE, SELFPAY | END 2025-01-30 11:08 | disposition home or self-care (01) | LOC: NFLDREF 02-03 18:11 | PROVIDERS: PCP Family Medicine; Referring Provider Family Medicine; Visit Provider Family Medicine | DX: R31.9 Hematuria, unspecified (principal); R10.9 Unspecified abdominal pain; F41.9 Anxiety disorder, unspecified; K58.9 Irritable bowel syndrome, unspecified | CPT/HCPCS: 87086 ==

== ENCOUNTER 2025-02-12 10:44 | Outpatient (CLI) | payer MEDICARE, SELFPAY ==
--- NOTE | 2025-02-12 11:00 | CRLHL7_ITS ---
For Patients: As a result of the Century Cures Act, medical imaging exams and procedure reports are released immediately into your electronic medical record. You may view this report before your referring provider. If you have questions, please contact your health care provider. Indication: Nicotine dependence, 40 pack-year smoking history, current smoker Technique: Noncontrast low-dose CT of the chest with multiplanar reformats. Comparison: Chest CT performed 01/10/2024 Findings: Lungs: No consolidation. No effusion. No pneumothorax. Areas of scarring and/or atelectasis are noted. No concerning nodule appreciated. Mediastinum: Unremarkable. Lymph nodes: No gross lymphadenopathy. Upper abdomen: Unremarkable. Soft tissues: Unremarkable. Bones: Mild spondylosis. Impression: No concerning pulmonary nodules are appreciated. Continued annual surveillance screening recommended (Lung-RADS 1). Please note that all CT scans at this facility use dose modulation, iterative reconstruction, and/or weight-based dosing when appropriate to reduce radiation dose to as low as reasonably achievable. Dictated by Rush Gregory MD @ 02/14/2025 7:52:26 PM (Electronically Signed)
== END 2025-02-12 10:45 | disposition home or self-care (01) ==
LOC: CT 10:44
PROVIDERS: PCP Family Medicine; Visit Provider Emergency Medicine
DX: Z12.2 Encounter for screening for malignant neoplasm of respiratory organs (principal); F17.210 Nicotine dependence, cigarettes, uncomplicated
CPT/HCPCS: 71271

== ENCOUNTER 2025-03-02 12:18 | Outpatient (CLI) | payer MEDICARE, SELFPAY | END 2025-03-02 12:19 | disposition home or self-care (01) | LOC: NFLDREF 03-11 00:41 | PROVIDERS: PCP Family Medicine; Referring Provider Family Medicine; Visit Provider Family Medicine | DX: R31.9 Hematuria, unspecified (principal) | CPT/HCPCS: 87086; 87186 ==

== ENCOUNTER 2025-04-13 12:20 | Outpatient (CLI) | payer MEDICARE, SELFPAY ==
[2025-04-13 12:51] LABS: Lab Add On Test New Spec Needed
== END 2025-04-13 12:21 | disposition home or self-care (01) ==
PROVIDERS: PCP Family Medicine; Visit Provider Family Medicine
DX: D75.89 Other specified diseases of blood and blood-forming organs (principal)
CPT/HCPCS: 80053

== ENCOUNTER 2025-05-22 12:11 | Outpatient (CLI) | payer MEDICARE, SELFPAY | END 2025-05-22 12:12 | disposition home or self-care (01) | PROVIDERS: PCP Family Medicine; Visit Provider Family Medicine | DX: R10.9 Unspecified abdominal pain (principal); K58.9 Irritable bowel syndrome, unspecified; E03.9 Hypothyroidism, unspecified | CPT/HCPCS: 80076; 86140 ==